=== PATIENT | female | born 2000 | race Caucasian/White ===

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

== ENCOUNTER 2023-03-25 07:30 | Inpatient (IN) ==
--- NOTE | 2023-03-14 11:20 | Anesthesiology Consultation ---
Date of Service March 14, 2023 Assessment & Plan (1) Encounter for pre-operative examination: Chart Review Chart Review: entry specialists initiated Previous C section done at [facility] secondary to arrhythmia (a flutter) -COVID screening: Per PAT nursing assessment on 03/14/23. No known COVID-19 positive contacts or current COVID-19 related symptoms. Travel screen negative. Patient is NOT vaccinated for Covid. At surgeon discretion if preop Covid testing being done. History Surgery Operation Date: 03/25/23 07:30 Proposed Procedures p Section (Delivery of Baby Though Abdominal Incision) - Philly Aguilar MD, FACOG Height/Weight Height: 5 ft 2 in Weight: 81.647 kg Allergies Allergy/AdvReac Type Severity Reaction Status Date / Time bee venom protein (honey bee) Allergy Intermediate SEVERE Verified 03/14/23 10:37 SWELLING AT SITE No Known Drug Allergies Allergy none Verified 03/14/23 10:37 Medications Home Medications Medication Instructions Recorded Confirmed Last Taken fluconazole 150 mg tablet 150 mg PO DAILY 1 dose #1 tab 03/04/23 03/14/23 Unknown (Diflucan) ferrous sulfate 134 mg (27 mg 134 mg PO QAM 03/14/23 03/14/23 Unknown iron) tablet Past Medical History Medical History Anemia Attention deficit hyperactivity disorder H/O esophageal reflux History of cold sores History of COVID-19 09/2021- while ; nausea, shakes, achy, fatigue; resolved Insomnia Obstructive sleep apnea mild, no device Oppositional defiant disorder SIRS (systemic inflammatory response syndrome) 09/2021 from covid in , resolved Past Family History Family History Father Anxiety Bipolar disorder [place] Depression ADHD (attention deficit hyperactivity disorder) Drinking problem Prostate cancer Mother Ovarian cyst Anxiety Bipolar disorder Depression Obese Unknown Diabetes Kidney disease Breast cancer Hypertension Thyroid disease Denies family history of Ovarian cancer Colorectal cancer Asthma Past Surgical History Surgical History History of tonsillectomy Hx of section Social History Smoking Status: Current some day smoker tobacco type: e-cigarettes Smoking cigarettes per day: vape 2-3 times per day- advised Do You Dip or Chew Tobacco: No Hx Alcohol Use: No Hx Substance Use: No substance use type: does not use Lab Results Anesthesia Preop Results Results Anesthesia Widget: Hgb 8.1 g/dl (12.0-16.0) L 02/11/23 Hct 26.8 % (37.0-47.0) L 02/11/23
--- NOTE | 2023-03-24 13:06 | History & Physical Report ---
Date of Service March 24, 2023 Assessment & Plan (1) Encounter for supervision of normal in multigravida: Plan: IUP at 39+ weeks with prior C/S and short interpregnancy interval presents for repeat C/S the procedure and its risks were reviewed with the patient and all questions were answered to her satisfaction. she is unsure about permanent sterilization and therefore will not be done with this section. History of Present Illness Primary Care Provider: NO PCP Patient is a 23-year-old 5 para 4-0-0-4 female EDC of 03/26/2023 who presents for repeat section at 39+ weeks. She has had 2 vaginal deliveries but with her last there was a arrhythmia and she underwent a primary section at [facility]. That delivered November 2021. As a result of the short interpregnancy interval, she is now scheduled for repeat section. After much discussion patient declines bilateral salpingectomy or tubal ligation. She is still unsure about permanent sterilization. Allergies Allergy/AdvReac Type Severity Reaction Status Date / Time bee venom protein (honey bee) Allergy Intermediate SEVERE Verified 03/24/23 09:36 SWELLING AT SITE No Known Drug Allergies Allergy none Verified 03/24/23 09:36 Home Medications Medication Instructions Recorded Confirmed Type fluconazole 150 mg tablet 150 mg PO DAILY 1 dose #1 tab 03/04/23 03/24/23 Rx (Diflucan) ferrous sulfate 134 mg (27 mg 134 mg PO QAM 03/14/23 03/24/23 History iron) tablet Patient History Medical History Anemia Attention deficit hyperactivity disorder H/O esophageal reflux History of cold sores History of COVID-19 09/2021- while ; nausea, shakes, achy, fatigue; resolved Insomnia Obstructive sleep apnea mild, no device Oppositional defiant disorder SIRS (systemic inflammatory response syndrome) 09/2021 from covid in , resolved Surgical History History of tonsillectomy Hx of section Family History Father Anxiety Bipolar disorder [place] Depression ADHD (attention deficit hyperactivity disorder) Drinking problem Prostate cancer Mother Ovarian cyst Anxiety Bipolar disorder Depression Obese Unknown Diabetes Kidney disease Breast cancer Hypertension Thyroid disease Denies family history of Ovarian cancer Colorectal cancer Asthma Social History Smoking Status: Current some day smoker Tobacco Type: Cigarettes and E-cigarettes / Vaping Cigarettes Per Day: vape 2-3 times per day- advised; Second Hand Exposure: Yes (in the past); Do You Dip or Chew Tobacco: No; Hx Alcohol Use: No Hx Substance Use: No Preferred Language: Lao Communication Ability: Effective Visual Impairment: No Limitations Civil Design Technician Required: No Beliefs That Will Affect Care: None marital status: marital status details: Kurt Jefferson (23) [phone] Current Living Situation: Spouse and Family current occupational status: employed current occupation: [employer] Feels Safe at Home: Yes Assistive Devices: Contacts and Glasses Review of Systems All systems reviewed & are unremarkable except as noted in HPI & below Physical Exam Constitutional: WD/WN, vitals as above Respiratory: normal respiratory effort, lungs clear to auscultation Cardiovascular: RRR, no murmur, no edema Psychiatric: A+Ox3, euthymic affect Genitourinary: OB Exam Abdomen: + fundal height (term), + vertex and + estimated weight (7-8 pounds) OB Exam Monitor Tracing: + external FHT monitor used, + external uterine monitor used, + category I and + normal FHT variability Coding Level of Care Code None Diagnoses Encounter for supervision of normal in multigravida Z34.80
[~2023-03-25 07:30] MED LIST changes: -ONDA4TAB10 SL; -PRENTAB26 PO; +ceFAZolin 2000MG 2,000 MG/15 ML SYR IV SCH
[2023-03-25] MEDS ORDERED: LACTATED RINGER'S 1,000 ML IV SCH ×2 (08:15→11:33)
[2023-03-25] MEDS ORDERED: SODIUM CHLORIDE 0.9% 250 ML IV PRN (08:35)
[2023-03-25 09:04] LABS: Hematocrit (blood only) 28.6 % (37.0-47.0); Hemoglobin 8.5 g/dl (12.0-16.0); Mean Corpuscular Hemoglobin 19.8 pg (25.0-34.0); Mean Corpuscular Hgb Conc 29.7 g/dL (32.0-36.0); Mean Corpuscular Volume 66.5 fL (80.0-100.0); Mean Platelet Volume 10.1 fL (9.4-12.4); Platelet Count 208 K/uL (130-400); RDW Coefficient of Variation 19.9 % (11.5-14.5); RDW Standard Deviation 45.5 fL (36.4-46.3); White Blood Count 9.97 K/ul (4.8-10.8)
--- NOTE | 2023-03-25 09:19 | History & Physical Bridge Note ---
Date of Service March 25, 2023 History & Physical Bridge Note I have examined the patient, reviewed the History & Physical and in the interval since the performance of the History & Physical I have noted the following changes of clinical significance: no changes noted
[2023-03-25] MEDS ORDERED: MEPERIDINE HCL 25 MG/ML CARP/VIAL IV PRN (09:20)
[2023-03-25] MEDS ORDERED: KETOROLAC 30 MG/ML VIAL IV PRN (09:20)
[2023-03-25] MEDS ORDERED: HYDROmorphone INJ 0.5 MG/0.5 ML SYR IV PRN (09:20)
[2023-03-25] MEDS ORDERED: MoRPHine SULFATE 2 MG/ML CARP IV PRN (09:20)
[2023-03-25] MEDS ORDERED: MoRPHine SULFATE PF 1 MG/ML 10 ML AMP/VIAL INT SPINAL ONE (09:20)
[2023-03-25] MEDS ORDERED: ePHEDrine sulfate 50 MG/ML AMP IV PRN (09:20)
[2023-03-25] MEDS ORDERED: LACTATED RINGER'S 500 ML IV PRN (09:20)
[2023-03-25] MEDS ORDERED: ONDANSETRON INJ 2 MG/ML 2 ML VIAL IV PRN ×2 (09:20→11:33)
[2023-03-25] MEDS ORDERED: NALOXONE HCL 0.08 MG in SYRINGE 1.8 ML IV PRN (09:20)
[2023-03-25] MEDS ORDERED: NALOXONE HCL 0.4 MG/1 ML VIAL/CARP IV PRN (09:20)
[2023-03-25] MEDS ORDERED: NALBUPHINE HCL INJ 10 MG/ML AMP IV PRN (09:20)
[2023-03-25] MEDS ORDERED: diphenhydrAMINE 50 MG/ML VIAL IV PRN (09:20)
[2023-03-25] MEDS ORDERED: NALOXONE HCL 1 MG in SODIUM CHLORIDE 0.9% 1000ML 1,000 ML IV PRN (09:20)
[2023-03-25] MEDS: CITRIC ACID/SODIUM CITRATE 15 ML UDC PO SCH ×2 (09:21→09:23)
[2023-03-25] MEDS ORDERED: NO NARCOTICS OR SEDATIVES SCH (09:30)
[2023-03-25] MEDS ORDERED: DC INTRASPINAL MORPHINE SCH (09:30)
[2023-03-25] MEDS ORDERED: SODIUM CHLORIDE 0.9% 1000ML 1,000 ML IV SCH (09:30)
[2023-03-25] MEDS ORDERED: MoRPHine SULFATE PF 1 MG/ML 10 ML AMP/VIAL ONE (10:02)
[2023-03-25] MEDS ORDERED: OXYTOCIN 10 UNITS/ML VIAL ONE ×4 (10:24→11:18)
[2023-03-25] MEDS ORDERED: PHENYLEPHRINE 100MCG/ML 5ML SYR ONE (10:24)
[2023-03-25] MEDS ORDERED: ONDANSETRON INJ 2 MG/ML 2 ML VIAL ONE (10:24)
[2023-03-25] MEDS ORDERED: KETOROLAC 30 MG/ML VIAL ONE (10:24)
--- NOTE | 2023-03-25 11:28 | Operative Report ---
PG Post Operative Report Pre & Post Diagnosis Operation Date: 03/25/23 08:50 Pre-Op Diagnosis: 1. Term at 39 weeks 2. Previous cesearean section desires repeat section. 3. Desires permenant sterilization bilateral tubal ligation. Post-Op Diagnosis: Same I identified the patient and participated in the time-out.: Yes Procedure Operation Date: 03/25/23 08:50 Actual Procedures p Section (Delivery of Baby Though Abdominal Incision) with the of a live female child at 1038. - Philly Aguilar MD, FACOG s Bilateral salpingectomy Labor & Deliv - Philly Aguilar MD, FACOG Surgeon Philly Aguilar MD, FACOG Hand Candle Dipper Brianne Miramontes MD Estimated Blood Loss 600 Findings Consistent with Post-Op Diagnosis Uterus is gravid and consistent with a term in size. Left ovary and tube are grossly normal. The right ovary is consistent with a streak ovary. There are no fimbria on the end of the right fallopian tube. The right fallopian tube also appears to be narrow and undeveloped. Specimens left and right fallopian tubes Drains Ho to straight drainage- clear urine at the end of the case Anesthesia Type Spinal Complications none Disposition Accompanied Patient To Recovery: Yes Indications Patient is a 23-year-old 5 para 4-0-0-4 female who presents at 39-6/7 we eks for repeat section. She had 3 vaginal deliveries followed by a primary section for nonreassuring heart rate pattern. She is requesting repeat section and bilateral salpingectomy because of unwanted fertility and multiparity. Description of Procedure At the patient received adequate subarachnoid block she was prepped and draped in usual sterile fashion. A low transverse skin incision was made through her prior scar and carried to the fascia with the same scalpel. The fascial incision was then extended with Suggs scissors. The edges were then grasped by Radha clamps and the underlying rectus muscles bluntly sharply dissected off of the overlying fascia. The rectus muscles were bluntly divided in the midline, and the underlying peritoneum elevated and entered sharply. The bladder was taken down off the anterior surface of the uterus with Metzenbaum scissors and placed behind the bladder blade. The uterus was noted to be dextra rotated and care was taken to restitute the fundus prior to entering the lower uterine segment with a scalpel. The uterine incision was then extended transversely and membranes were ruptured for clear fluid. The infant was delivered from the vertex presentation with moderate fundal pressure and assistance with the Kiwi vacuum device to bring the vertex through the incision. The rest of the infant followed easily. The female infant was vigorous crying and moving all 4 limbs. Cord was then clamped and cut and cord blood obtained. The was handed off to Dr. Steward who was attendance as underwriting support specialist. The placenta was then manually removed and the uterus exteriorized and covered a clean lap sponge. The uterine cavity was explored and some retained membranes were removed. Uterus was then closed in 2 layers in a running locking imbricating fashion with 0 Monocryl. Hemostasis noted to be satisfactory on the uterine incision and attention was turned to the fallopian tubes. As noted above, the right ovary appeared to be a streak ovary and the right fallopian tube did not appear to have fimbria and after tracing it distally, it appeared to attach just behind the round ligament. As far distally as we could go, the portion of right fallopian tube was then removed using LigaSure device 2 weeks insertion at the cornua of the uterus. Bleeding at the distal portion of the tube was secured with the Bovie. The left fallopian tube which appeared to be completely normal, was grasped on the midportion with a [place] clamp followed to its fimbriated end and then removed with the LigaSure device to the cornua of the uterus. Hemostasis was noted to be excellent. The posterior cul-de-sac was suctioned for small amount of blood. After examining the tubal sites and uterine incision once more and found to have excellent hemostasis, the uterus was gently placed back inside the abdominal cavity. The gutters were explored and a small amount of blood was removed from the left gutter the salpingectomy sites and uterine incision were reexamined and continue to have excellent hemostasis. Some bleeding on the rectus muscle was secured with a suture of 0 Monocryl. There was some bleeding also at the insertion site of the left rectus muscle behind the symphysis and this was controlled with Bovie. The fascia was then closed in a running fashion with 0 Vicryl. There was some bleeding in the subcutaneous layer and this was controlled with the Bovie. The skin edges were reapproximated using a subcuticular stitch of 3-0 Vicryl. Patient tolerated procedure well and was stable upon arrival back in labor and delivery. I attest to the content of the Intraoperative Record and any orders documented therein. Any exceptions are noted below. OB Procedure Charges 73400 [id number] Add on Tubal for C/S
--- NOTE | 2023-03-25 11:29 | Post Operative Brief Note ---
PG Immediate Post Op with CF Date of Surgery March 25, 2023 Pre & Post Diagnosis Operation Date: 03/25/23 08:50 Pre-Op Diagnosis: 1. Term at 39 weeks 2. Previous cesearean section desires repeat section. 3. Desires permenant sterilization bilateral tubal ligation. Post-Op Diagnosis: Same I identified the patient and participated in the time-out.: Yes Procedure Operation Date: 03/25/23 08:50 Actual Procedures p Section (Delivery of Baby Though Abdominal Incision) with the of a live female child at 1038. - Philly Aguilar MD, FACOG s Bilateral Tubal Ligation Labor & Deliv - Philly Aguilar MD, FACOG Surgeon Philly Aguilar MD, FACOG Mechanism Assembler Brianne Miramontes MD Estimated Blood Loss 600 Findings Consistent with Post-Op Diagnosis Specimens Specimen Description: A: Placeta-hold B: Cord Blood C: Right fallopian tube D: Left fallopian tube Drains Ho Catheter (placed after spinal; clear yellow urine noted upon insertion. ) Anesthesia Type Spinal Complications none Disposition Accompanied Patient To Recovery: Yes
[2023-03-25] MEDS ORDERED: SENNA 8.6 MG TAB PO PRN (11:33)
[2023-03-25] MEDS ORDERED: ZOLPIDEM TARTRATE 5 MG TAB PO PRN (11:33)
[2023-03-25] MEDS ORDERED: MAGNESIUM HYDROXIDE SUSP 30 ML UDC PO PRN (11:33)
[2023-03-25] MEDS ORDERED: DIPHTHERIA/TETANUS/PERTUSSIS Vaccine (Tdap, Age 7+yrs) 0.5mL SYR/VL IM ONE (11:33)
[2023-03-25] MEDS ORDERED: BENZOCAINE 20% AER SPR 82.5 GM CAN EXT PRN (11:33)
[2023-03-25] MEDS ORDERED: HYDROCORTISONE ACETATE 25 MG SUPP PR PRN (11:33)
--- NOTE | 2023-03-25 12:04 | Anesthesiology Progress Note ---
Date of Service March 25, 2023 Anesthesia Post Procedure Vital Signs Vital Signs: Temp Pulse Resp BP Pulse Ox O2 Del Method 03/25/23 08:13 36.5 C 18 Room Air 03/25/23 11:59 81 98 03/25/23 11:57 76 108/65 03/25/23 11:54 85 99 03/25/23 11:49 87 98 03/25/23 11:46 93 H 99/54 L 03/25/23 11:44 77 100 03/25/23 11:39 85 98 03/25/23 11:35 86 97/55 L 03/25/23 11:34 83 100 03/25/23 10:05 86 99 03/25/23 10:00 88 98 03/25/23 09:55 93 H 99 03/25/23 09:50 92 H 99 03/25/23 09:45 94 H 99 03/25/23 09:40 100 H 100 03/25/23 09:35 94 H 100 03/25/23 09:30 88 99 03/25/23 09:25 92 H 100 03/25/23 09:20 91 H 98 03/25/23 09:15 91 H 99 03/25/23 09:10 87 98 03/25/23 09:05 89 98 03/25/23 09:00 93 H 99 03/25/23 08:55 96 H 99 03/25/23 08:50 94 H 98 03/25/23 08:45 96 H 99 03/25/23 08:40 98 H 97 03/25/23 08:35 98 H 99 03/25/23 08:04 109 H 103/68 Transfer of Care Handoff Completed per policy Notes Mental Status: alert / awake / arousable Nausea / Vomiting: adequately controlled Pain: adequately controlled Airway Patency, RR, SpO2: stable & adequate BP & HR: stable & adequate Hydration State: stable & adequate Neuraxial Anesthesia: was administered and sensory block is resolving Anesthetic Complications: no major complications apparent and Pt Satisfied with anesthetic care
[2023-03-25] MEDS: OXYTOCIN 20 UNITS in LACTATED RINGER'S 1,000 ML IV SCH ×2 (14:35→22:19)
[2023-03-25] MEDS: SIMETHICONE 80 MG CHEW PO SCH ×3 (18:10→22:50)
[2023-03-25] MEDS: DOCUSATE SODIUM 100 MG CAP PO SCH (20:44)
[2023-03-26] MEDS ORDERED: PROMETHAZINE HCL 25 MG in SODIUM CHLORIDE 0.9% 50 ML IV PRN (03:21)
[2023-03-26] MEDS ORDERED: diphenhydrAMINE 50 MG/ML VIAL IV PRN (03:21)
[2023-03-26] MEDS ORDERED: diphenhydrAMINE Capsule 25 MG CAP PO PRN (03:21)
[2023-03-26] MEDS: IBUPROFEN 600 MG TAB PO PRN ×5 (04:08→22:03)
[2023-03-26] MEDS: oxyCODONE/ACETAMINOPHEN 5mg/325mg TAB PO PRN ×5 (04:09→22:03)
[2023-03-26 06:50] LABS: Basophils # (auto) 0.03 K/uL (0-0.2); Basophils % (auto) 0.3 %; Hematocrit (blood only) 28.6 % (37.0-47.0); Hemoglobin 8.4 g/dl (12.0-16.0); Immature Granulocytes # (auto) 0.04 K/uL (0.01-0.20); Immature Granulocytes % (auto) 0.4 %; Lymphocytes # (auto) 1.36 K/uL (1.2-3.4); Lymphocytes % (auto) 14.1 %; Mean Corpuscular Hemoglobin 19.5 pg (25.0-34.0); Mean Corpuscular Hgb Conc 29.4 g/dL (32.0-36.0); Mean Corpuscular Volume 66.5 fL (80.0-100.0); Monocytes # (auto) 0.67 K/uL (0.11-0.59); Monocytes % (auto) 6.9 %; Neutrophils # (auto) 7.47 K/uL (1.40-6.50); Neutrophils % (auto) 77.3 %; RDW Coefficient of Variation 19.7 % (11.5-14.5); RDW Standard Deviation 46.5 fL (36.4-46.3); White Blood Count 9.67 K/ul (4.8-10.8)
[2023-03-26 07:01] LABS: Mean Platelet Volume 9.7 fL (9.4-12.4); Platelet Count 182 K/uL (130-400)
--- NOTE | 2023-03-26 07:04 | Obstetrical Progress Note ---
Date of Service March 26, 2023 Assessment & Plan (1) examination following delivery: Plan stable, routine care. rh pos, ri. adv diet, ambulate, po pain meds. will order binder for pt. hgb pending. Day #:: 1 Subjective Ambulation: ambulating normally Voiding: no voiding problems Passing Gas:: Yes Diet Tolerance:: regular diet Lochia:: Small doing well, wants abd binder. pain control adequate Physical Exam Constitutional WD/WN, vitals as above Respiratory normal respiratory effort, lungs clear to auscultation Cardiovascular Rate/Rhythm: regular rate and regular rhythm Gastrointestinal (Abdomen) Inspection/Auscultation: abdomen normal to inspection and + abdominal surgical incision (c/d/i) Percussion/Palpation: abdomen soft; abdomen nontender Fundus firm 2cm down Musculoskeletal nt calves no edema Neurologic grossly normal Psychiatric A+Ox3, euthymic affect Results & Data Vital Signs (Past 12 Hours) Vital Signs Temp Pulse Resp BP Pulse Ox O2 Del Method 03/26/23 03:30 97.9 F 84 20 101/73 96 Room Air 03/26/23 03:00 16 98 03/26/23 02:00 16 96 03/26/23 01:00 16 96 03/26/23 00:15 97.9 F 86 16 101/68 98 Room Air 03/26/23 00:01 18 95 03/25/23 23:00 18 99 03/25/23 22:00 18 97 03/25/23 21:00 18 96 03/25/23 20:45 18 95 03/25/23 20:45 Room Air 03/25/23 20:45 97.9 F 88 18 111/73 95 Room Air
[2023-03-26 07:32] LABS: Anisocytosis Present; Microcytosis Present; Polychromasia 1+
[2023-03-26] MEDS: DOCUSATE SODIUM 100 MG CAP PO SCH ×2 (08:36→22:03)
[2023-03-26] MEDS: SIMETHICONE 80 MG CHEW PO SCH ×4 (08:36→22:03)
[2023-03-26] MEDS: PRENATAL VITAMIN 1 TAB PO SCH (08:36)
[2023-03-26] MEDS: FERROUS SULFATE 325 MG TAB PO SCH (08:36)
[2023-03-26] MEDS ORDERED: bisacodyL 5 MG TABEC PO SCH (20:00)
[2023-03-27] MEDS: oxyCODONE/ACETAMINOPHEN 5mg/325mg TAB PO PRN ×4 (03:27→19:19)
[2023-03-27] MEDS: IBUPROFEN 600 MG TAB PO PRN ×4 (03:27→19:18)
[2023-03-27 06:34] LABS: Hematocrit (blood only) 25.8 % (37.0-47.0); Hemoglobin 7.5 g/dl (12.0-16.0)
[2023-03-27] MEDS: SIMETHICONE 80 MG CHEW PO SCH ×3 (08:06→17:39)
[2023-03-27] MEDS: DOCUSATE SODIUM 100 MG CAP PO SCH (08:06)
[2023-03-27] MEDS: FERROUS SULFATE 325 MG TAB PO SCH (08:07)
[2023-03-27] MEDS: PRENATAL VITAMIN 1 TAB PO SCH (08:07)
--- NOTE | 2023-03-27 08:27 | Obstetrical Progress Note ---
Date of Service March 27, 2023 Assessment & Plan (1) examination following delivery: satisfactory post-op course will try to take iron consistently for the next 6 weeks continue current care plan Subjective Ambulation: ambulating normally Voiding: no voiding problems Passing Gas:: Yes Diet Tolerance:: regular diet Lochia:: Small Feeding Type:: breast feeding incision sore when moving. pain meds effective. Review of Systems All systems reviewed & are unremarkable except as noted in HPI & below Physical Exam Constitutional WD/WN, vitals as above Gastrointestinal (Abdomen) Inspection/Auscultation: + abdominal surgical incision (dry and intact) Psychiatric A+Ox3, euthymic affect Genitourinary OB Exam Abdomen: + fundal height Fundus: + firm and + relation to umbilicus (2 below) Results & Data Vital Signs (Past 12 Hours) Vital Signs Temp Pulse Pulse Resp BP Pulse Ox O2 Del Method 03/27/23 07:54 98.1 F 81 18 109/73 97 Room Air 03/27/23 03:30 97.7 F 79 18 111/75 96 Room Air
[2023-03-27] MEDS ORDERED: bisacodyL 10 MG SUPP PR PRN (11:17)
== END 2023-03-27 20:20 | disposition home or self-care (01) | DRG 785 ==
LOC: EDSTATUS 07:30 → 4S1 07:59 → 4E2 14:49
PROC: M.PPTLD (2023-03-25 08:50)